=== PATIENT | male | born 1975 | race African-American/Black ===

== ENCOUNTER 2024-05-31 14:17 | Inpatient (IN) | payer OTHER ==
[~2024-05-31] VITALS: Ht 172.7 cm; Wt 93.4 kg
[2024-05-31 14:17] VITALS: BP_SYST 146; PULSE 83; RESP 19; TEMP 102.8; O2SAT 96
[2024-05-31 14:51] LABS: CLARITY/URINE CLEAR (CLEAR); COLOR,URINE YELLOW (YELLOW); GLUCOSE,URINE NEGATIVE (NEGATIVE); KETONES,URINE 2+ (NEGATIVE); LEUKOCYTE ESTERASE ,URINE NEGATIVE (NEGATIVE); NITRITE, URINE NEGATIVE (NEGATIVE); PROTEIN URINE TRACE (NEGATIVE)
[2024-05-31] MEDS: IBUPROFEN 800 MG TABLET PO ONE (14:55)
[2024-05-31 14:59] LABS: BILIRUBIN,URINE 1+ (NEGATIVE); BLOOD, URINE TRACE (NEGATIVE)
[2024-05-31 15:00] LABS: BACTERIA,URINE RARE /HPF (None Seen); RBC,URINE NONE SEEN /HPF (0-3); WBC,URINE 0-3 /HPF (0-3)
[2024-05-31 15:01] LABS: MUCUS,URINE None Seen /LPF (None Seen)
[2024-05-31 15:16] LABS: BASOPHILS # (AUTO) 0.1 K/uL (0.0-0.2); BASOPHILS % (AUTO) 0.9 % (0.0-2.0); EOSINOPHILS % (AUTO) 0.1 % (0.0-4.0); HEMATOCRIT 42.8 % (36-54); HEMOGLOBIN 14.4 g/dL (14.0-18.0); LYMPHOCYTES # (AUTO) 2.5 K/uL (1.0-5.5); LYMPHOCYTES % (AUTO) 14.3 % (20.5-51.5); MEAN CORPUSCULAR HEMOGLOBIN 28 pg (27-31); MEAN CORPUSCULAR HGB CONC 34 % (32-36); MEAN CORPUSCULAR VOLUME 83 fL (79.0-98.0); MONOCYTES # (AUTO) 1.3 K/uL (0.0-1.0); MONOCYTES % (AUTO) 7.5 % (1.7-9.3); NEUTROPHILS # (AUTO) 13.5 K/uL (1.8-7.7); NEUTROPHILS % (AUTO) 77.2 % (40.0-70.0); PLATELET COUNT (AUTO) 254 K/uL (130-430); RED BLOOD CELL COUNT(AUTO) 5.14 MIL/uL (4.2-6.2); RED CELL DISTRIBUTION WIDTH 13.7 % (9.0-15.0); WHITE BLOOD COUNT (AUTO) 17.5 K/uL (4.8-10.8)
[2024-05-31 15:29] LABS: INR 1.1 (0.80-1.20); PROTHROMBIN TIME 11.6 SECS (9.5-12.5)
[2024-05-31 15:35] LABS: ALBUMIN 4.3 g/dL (3.4-4.8); CREATININE 1.09 mg/dL (0.55-1.30); POTASSIUM 3.5 mmol/L (3.5-5.1); TOTAL BILIRUBIN 1.1 mg/dL (0.0-1.0); TOTAL PROTEIN, SERUM 7.6 g/dL (6.4-8.3)
[2024-05-31 16:05] LABS: BILIRUBIN,DIRECT 0.3 mg/dL (0.0-0.3)
[2024-05-31 16:29] LABS: INFLUENZA TYPE A Negative (NEGATIVE); INFLUENZA TYPE B NEGATIVE (NEGATIVE)
[2024-05-31] MEDS ORDERED: ACETAMINOPHEN 325 MG TABLET PO PRN ×2 (17:45→18:00)
[2024-05-31] MEDS ORDERED: ONDANSETRON HCL 4 MG/2 ML VIAL IVP PRN (17:45)
[2024-05-31] MEDS ORDERED: cefTRIAXone 2 GM VIAL IM SCH (17:45)
[2024-05-31] MEDS ORDERED: cefTRIAXone 1 GM IVPB PREMIX 50 ML IV SCH (17:45)
[2024-05-31 18:15] LABS: CSF APPEARANCE CLEAR (CLEAR); CSF COLOR COLORLESS (COLORLESS); CSF VOLUME 1.5 mL
[2024-05-31] MEDS: LIDOCAINE 1% 10 MG/ML, 20 ML MDV INJ ONE (18:28)
[2024-05-31 18:41] LABS: CSF PROTEIN 89 mg/dL (15-45)
[2024-05-31] MEDS: MORPHINE 4 MG INJ. 4 MG/ML VIAL IVP PRN (18:41)
[2024-05-31] MEDS: METOCLOPRAMIDE HCL 10 MG/2 ML VIAL IVP ONE (18:42)
[2024-05-31 18:43] LABS: CSF GLUCOSE 54 mg/dL (40-70)
[2024-05-31] MEDS: 0.45% NACL 1,000 ML IV SCH (18:43)
[2024-05-31 18:44] LABS: CSF LYMPHOCYTES 56 % (40-60); CSF NEUTROPHILS 44 % (0-6); CSF RED BLOOD CELL COUNT #1 176 /uL (0-0)
[2024-05-31] MEDS: DEXAMETHASONE SOD PHOSPHATE 10 MG/ML VIAL IVP SCH (18:46)
[2024-05-31] MEDS: DIPHENHYDRAMINE INJ 50 MG/ML VIAL IVP ONE (18:46)
[2024-05-31] MEDS ORDERED: cefTRIAXone 2 GM VIAL ONE (18:50)
[2024-05-31] MEDS: cefTRIAXone 2 GM IVPB PREMIX 50 ML IV ONE (18:51)
[2024-05-31] MEDS ORDERED: VANCOMYCIN HCL 1000 MG/VIAL IV ONE (19:43)
[2024-05-31] MEDS ORDERED: VANCOMYCIN HCL 500 MG/VIAL IV ONE (19:43)
[2024-05-31] MEDS: VANCOMYCIN HCL 1,500 MG in NS 500 ML IV ONE (20:09)
[2024-05-31 22:03] VITALS: BP_SYST 122; PULSE 70; RESP 18; TEMP 99.3; O2SAT 96
[2024-05-31] MEDS ORDERED: ACYCLOVIR SODIUM 50 MG/ML VIAL IV ONE (23:16)
[2024-05-31] MEDS: ACYCLOVIR IV SCH (23:25)
[2024-05-31] MEDS: NS IV SCH (23:25)
[2024-06-01 00:07] VITALS: BP_SYST 125; PULSE 79; RESP 19; TEMP 99.1
[2024-06-01] MEDS: VANCOMYCIN HCL 1,500 MG in NS 500 ML IV ONE (03:28)
[2024-06-01 07:24] LABS: ALBUMIN 3.8 g/dL (3.4-4.8); CALCIUM 8.6 mg/dL (8.4-11.0); CREATININE 0.95 mg/dL (0.55-1.30); PHOSPHORUS 3.9 mg/dL (2.7-4.5); POTASSIUM 4.1 mmol/L (3.5-5.1); TOTAL BILIRUBIN 0.7 mg/dL (0.0-1.0); TOTAL PROTEIN, SERUM 7.3 g/dL (6.4-8.3)
[2024-06-01 08:03] VITALS: BP_SYST 122; PULSE 67; RESP 12; TEMP 98.4; O2SAT 97
[2024-06-01 08:13] LABS: BASOPHILS % (AUTO) 0.2 % (0.0-2.0); HEMATOCRIT 43.5 % (36-54); HEMOGLOBIN 14.6 g/dL (14.0-18.0); MEAN CORPUSCULAR HEMOGLOBIN 28 pg (27-31); MEAN CORPUSCULAR HGB CONC 34 % (32-36); MEAN CORPUSCULAR VOLUME 83 fL (79.0-98.0); MONOCYTES # (AUTO) 0.4 K/uL (0.0-1.0); MONOCYTES % (AUTO) 3.1 % (1.7-9.3); NEUTROPHILS # (AUTO) 12.3 K/uL (1.8-7.7); NEUTROPHILS % (AUTO) 89.7 % (40.0-70.0); PLATELET COUNT (AUTO) 285 K/uL (130-430); RED BLOOD CELL COUNT(AUTO) 5.22 MIL/uL (4.2-6.2); RED CELL DISTRIBUTION WIDTH 13.5 % (9.0-15.0); WHITE BLOOD COUNT (AUTO) 13.8 K/uL (4.8-10.8)
[2024-06-01] MEDS ORDERED: cefTRIAXone 2 GM VIAL IV SCH (09:00)
[2024-06-01 09:22] VITALS: O2SAT 98
[2024-06-01 11:08] VITALS: BP_SYST 132; PULSE 73; RESP 12; TEMP 99.1; O2SAT 98
[2024-06-01] MEDS: PANTOPRAZOLE SODIUM 40 MG TAB PO ONE (11:42)
[2024-06-01] MEDS: VANCOMYCIN HCL 1,000 MG in NS 250 ML IV SCH (13:47)
[2024-06-01] MEDS: HYDROcodone/ACETAMIN 5-325 MG TAB (NORCO/ VICODIN) PO PRN (14:40)
[2024-06-01 15:18] VITALS: BP_SYST 147; PULSE 81; RESP 16; TEMP 98.8; O2SAT 97
[2024-06-01 20:03] VITALS: BP_SYST 126; PULSE 66; RESP 18; TEMP 98.2; O2SAT 100
[2024-06-01] MEDS: DIPHENHYDRAMINE HCL 12.5 MG/5 ML UDC PO PRN (21:43)
[2024-06-02] VITALS (7 sets, daily range): BP systolic 115–121; PULSE 65–70; RESP 15–18; TEMP 98.4–99.1; O2SAT 95–99
[2024-06-02] MEDS: PANTOPRAZOLE SODIUM 40 MG TAB PO SCH (08:33)
[2024-06-02 10:23] LABS: ALBUMIN 3.6 g/dL (3.4-4.8); CREATININE 1.09 mg/dL (0.55-1.30); POTASSIUM 4.3 mmol/L (3.5-5.1); TOTAL BILIRUBIN 0.4 mg/dL (0.0-1.0); TOTAL PROTEIN, SERUM 7.1 g/dL (6.4-8.3); VANCOMYCIN,TROUGH 13.3 ug/mL (10.0-20.0)
[2024-06-02 10:32] LABS: BASOPHILS % (AUTO) 0.2 % (0.0-2.0); HEMOGLOBIN 13.9 g/dL (14.0-18.0); LYMPHOCYTES # (AUTO) 0.9 K/uL (1.0-5.5); LYMPHOCYTES % (AUTO) 4.6 % (20.5-51.5); MEAN CORPUSCULAR HEMOGLOBIN 28 pg (27-31); MEAN CORPUSCULAR HGB CONC 33 % (32-36); MEAN CORPUSCULAR VOLUME 83 fL (79.0-98.0); MONOCYTES # (AUTO) 0.6 K/uL (0.0-1.0); NEUTROPHILS # (AUTO) 18.4 K/uL (1.8-7.7); NEUTROPHILS % (AUTO) 92.2 % (40.0-70.0); PLATELET COUNT (AUTO) 298 K/uL (130-430); RED BLOOD CELL COUNT(AUTO) 5.04 MIL/uL (4.2-6.2); RED CELL DISTRIBUTION WIDTH 13.8 % (9.0-15.0); WHITE BLOOD COUNT (AUTO) 19.9 K/uL (4.8-10.8)
[2024-06-03] VITALS (8 sets, daily range): BP systolic 111–130; PULSE 68–78; RESP 16–18; TEMP 97.1–98.6; O2SAT 97–98
[2024-06-03 03:07] LABS: HSV 2 IgG, TYPE SPECIFIC <0.91 index (0.00-0.90)
[2024-06-03 08:02] LABS: BASOPHILS % (AUTO) 0.2 % (0.0-2.0); HEMATOCRIT 40.2 % (36-54); HEMOGLOBIN 13.7 g/dL (14.0-18.0); LYMPHOCYTES % (AUTO) 17.7 % (20.5-51.5); MEAN CORPUSCULAR HEMOGLOBIN 28 pg (27-31); MEAN CORPUSCULAR HGB CONC 34 % (32-36); MEAN CORPUSCULAR VOLUME 83 fL (79.0-98.0); MONOCYTES # (AUTO) 1.3 K/uL (0.0-1.0); MONOCYTES % (AUTO) 7.8 % (1.7-9.3); NEUTROPHILS # (AUTO) 12.5 K/uL (1.8-7.7); NEUTROPHILS % (AUTO) 74.3 % (40.0-70.0); PLATELET COUNT (AUTO) 283 K/uL (130-430); RED BLOOD CELL COUNT(AUTO) 4.85 MIL/uL (4.2-6.2); RED CELL DISTRIBUTION WIDTH 13.8 % (9.0-15.0); WHITE BLOOD COUNT (AUTO) 16.9 K/uL (4.8-10.8)
[2024-06-03 08:24] LABS: ALBUMIN 3.4 g/dL (3.4-4.8); CALCIUM 8.8 mg/dL (8.4-11.0); CREATININE 1.04 mg/dL (0.55-1.30); POTASSIUM 4.1 mmol/L (3.5-5.1); TOTAL BILIRUBIN 0.5 mg/dL (0.0-1.0); TOTAL PROTEIN, SERUM 6.6 g/dL (6.4-8.3)
[2024-06-03 10:07] LABS: QUANTIFERON TB GOLD Negative (Negative)
[2024-06-03 10:36] LABS: CSF WHITE BLOOD CELL COUNT #1 34 /uL (0-5)
[2024-06-03] MEDS ORDERED: VANCOMYCIN HCL 1,000 MG in NS 250 ML IV SCH (22:00)
[2024-06-03] MEDS: VANCOMYCIN HCL 1,000 MG in NS 250 ML IV SCH (22:19)
[2024-06-04] VITALS (7 sets, daily range): BP systolic 106–122; PULSE 64–97; RESP 16–18; TEMP 97.2–98; O2SAT 96–100
[2024-06-04 08:23] LABS: BASOPHILS # (AUTO) 0.1 K/uL (0.0-0.2); BASOPHILS % (AUTO) 0.4 % (0.0-2.0); EOSINOPHILS # (AUTO) 0.1 K/uL (0.0-0.4); EOSINOPHILS % (AUTO) 0.6 % (0.0-4.0); HEMATOCRIT 42.4 % (36-54); HEMOGLOBIN 14.2 g/dL (14.0-18.0); LYMPHOCYTES # (AUTO) 4.4 K/uL (1.0-5.5); LYMPHOCYTES % (AUTO) 32.2 % (20.5-51.5); MEAN CORPUSCULAR HEMOGLOBIN 28 pg (27-31); MEAN CORPUSCULAR HGB CONC 34 % (32-36); MEAN CORPUSCULAR VOLUME 83 fL (79.0-98.0); MONOCYTES # (AUTO) 1.3 K/uL (0.0-1.0); MONOCYTES % (AUTO) 9.4 % (1.7-9.3); NEUTROPHILS # (AUTO) 7.9 K/uL (1.8-7.7); NEUTROPHILS % (AUTO) 57.4 % (40.0-70.0); PLATELET COUNT (AUTO) 281 K/uL (130-430); RED BLOOD CELL COUNT(AUTO) 5.09 MIL/uL (4.2-6.2); RED CELL DISTRIBUTION WIDTH 13.9 % (9.0-15.0); WHITE BLOOD COUNT (AUTO) 13.8 K/uL (4.8-10.8)
[2024-06-04 08:42] LABS: ALBUMIN 3.4 g/dL (3.4-4.8); CALCIUM 8.7 mg/dL (8.4-11.0); CREATININE 1.08 mg/dL (0.55-1.30); POTASSIUM 3.9 mmol/L (3.5-5.1); TOTAL BILIRUBIN 0.5 mg/dL (0.0-1.0); TOTAL PROTEIN, SERUM 6.5 g/dL (6.4-8.3)
[2024-06-04] MEDS: TEMAZEPAM 7.5 MG CAPSULE PO ONE (23:35)
[2024-06-05] VITALS: BP_SYST 112; PULSE 78; RESP 18; TEMP 97.7; O2SAT 95
[2024-06-05 07:53] LABS: BASOPHILS # (AUTO) 0.1 K/uL (0.0-0.2); BASOPHILS % (AUTO) 0.4 % (0.0-2.0); EOSINOPHILS # (AUTO) 0.2 K/uL (0.0-0.4); EOSINOPHILS % (AUTO) 1.1 % (0.0-4.0); HEMATOCRIT 43.6 % (36-54); HEMOGLOBIN 14.5 g/dL (14.0-18.0); LYMPHOCYTES # (AUTO) 3.2 K/uL (1.0-5.5); MEAN CORPUSCULAR HEMOGLOBIN 28 pg (27-31); MEAN CORPUSCULAR HGB CONC 33 % (32-36); MEAN CORPUSCULAR VOLUME 83 fL (79.0-98.0); MONOCYTES # (AUTO) 1.3 K/uL (0.0-1.0); MONOCYTES % (AUTO) 9.2 % (1.7-9.3); NEUTROPHILS # (AUTO) 9.9 K/uL (1.8-7.7); NEUTROPHILS % (AUTO) 67.3 % (40.0-70.0); PLATELET COUNT (AUTO) 301 K/uL (130-430); RED BLOOD CELL COUNT(AUTO) 5.23 MIL/uL (4.2-6.2); RED CELL DISTRIBUTION WIDTH 13.4 % (9.0-15.0); WHITE BLOOD COUNT (AUTO) 14.6 K/uL (4.8-10.8)
[2024-06-05 08:16] LABS: ALBUMIN 3.4 g/dL (3.4-4.8); CALCIUM 8.7 mg/dL (8.4-11.0); CREATININE 1.16 mg/dL (0.55-1.30); POTASSIUM 3.8 mmol/L (3.5-5.1); TOTAL BILIRUBIN 0.6 mg/dL (0.0-1.0); TOTAL PROTEIN, SERUM 6.5 g/dL (6.4-8.3)
[2024-06-05 08:34] VITALS: BP_SYST 131; PULSE 67; RESP 16; TEMP 97.2; O2SAT 97
[2024-06-05 10:00] VITALS: O2SAT 97
[2024-06-05 16:00] VITALS: BP_SYST 127; PULSE 70; RESP 17; TEMP 99.1; O2SAT 100
[2024-06-05 20:00] VITALS: BP_SYST 125; PULSE 71; RESP 18; TEMP 97.9; O2SAT 100
[2024-06-05] MEDS: MORPHINE 4 MG INJ. 4 MG/ML VIAL IVP ONE ×2 (22:14→22:55)
[2024-06-06] VITALS: BP_SYST 111; PULSE 61; RESP 18; TEMP 98.8; O2SAT 98
[2024-06-06 07:08] LABS: BASOPHILS # (AUTO) 0.1 K/uL (0.0-0.2); BASOPHILS % (AUTO) 0.4 % (0.0-2.0); EOSINOPHILS # (AUTO) 0.4 K/uL (0.0-0.4); EOSINOPHILS % (AUTO) 2.9 % (0.0-4.0); HEMOGLOBIN 13.9 g/dL (14.0-18.0); LYMPHOCYTES # (AUTO) 2.5 K/uL (1.0-5.5); LYMPHOCYTES % (AUTO) 19.8 % (20.5-51.5); MEAN CORPUSCULAR HEMOGLOBIN 28 pg (27-31); MEAN CORPUSCULAR HGB CONC 33 % (32-36); MEAN CORPUSCULAR VOLUME 83 fL (79.0-98.0); MONOCYTES # (AUTO) 1.5 K/uL (0.0-1.0); MONOCYTES % (AUTO) 11.7 % (1.7-9.3); NEUTROPHILS # (AUTO) 8.2 K/uL (1.8-7.7); NEUTROPHILS % (AUTO) 65.2 % (40.0-70.0); PLATELET COUNT (AUTO) 283 K/uL (130-430); RED BLOOD CELL COUNT(AUTO) 5.05 MIL/uL (4.2-6.2); RED CELL DISTRIBUTION WIDTH 13.6 % (9.0-15.0); WHITE BLOOD COUNT (AUTO) 12.5 K/uL (4.8-10.8)
[2024-06-06 07:52] LABS: ALBUMIN 3.3 g/dL (3.4-4.8); CALCIUM 8.7 mg/dL (8.4-11.0); CREATININE 1.1 mg/dL (0.55-1.30); POTASSIUM 4.1 mmol/L (3.5-5.1); TOTAL BILIRUBIN 0.5 mg/dL (0.0-1.0); TOTAL PROTEIN, SERUM 6.3 g/dL (6.4-8.3)
[2024-06-06 09:30] VITALS: O2SAT 100
[2024-06-06] MEDS: CYCLOBENZAPRINE HCL 10 MG TABLET (FLEXERIL) PO SCH (09:54)
[2024-06-06] MEDS ORDERED: ACYC-133 PO (11:33)
[2024-06-06 12:43] VITALS: BP_SYST 106; PULSE 74; RESP 16; TEMP 98.2; O2SAT 98
[2024-06-06 17:03] VITALS: BP_SYST 131; PULSE 79; RESP 16; TEMP 98.6; O2SAT 98
[2024-06-06] MEDS ORDERED: CYCL10TA24 PO (18:00)
[2024-06-06] MEDS ORDERED: VANCOMYCIN HCL 1.25 GM/NS 250 ML IV SCH (18:00)
[2024-06-06 19:25] VITALS: BP_SYST 133; PULSE 76; RESP 16; TEMP 98.2; O2SAT 98
== END 2024-06-06 20:20 | disposition home health service (06) | DRG 872 ==
LOC: SED 14:17 → SMU 17:33
PROVIDERS: ADMIT Family Medicine; ATTEND Family Medicine
PROC: 009U3ZX Drainage of Spinal Canal, Percutaneous Approach, Diagnostic (ICD-10-PCS; principal; 2024-05-31)
PROC: 4A00X4Z Measurement of Central Nervous Electrical Activity, External Approach (ICD-10-PCS; 2024-05-31)
DX: A41.9 Sepsis, unspecified organism (principal); A87.9 Viral meningitis, unspecified; E66.3 Overweight; I10 Essential (primary) hypertension; E11.9 Type 2 diabetes mellitus without complications; Z68.31 Body mass index [BMI] 31.0-31.9, adult
CPT/HCPCS: 36415; 70450-TC; 71045; 80048; 80053; 80076; 80202; 81000; 81001; 81015; 82947; 83605; 83735; 84100; 84157; 85025; 85048; 85610; 85651; 85730; 86480; 86592; 86695; 86696; 87040; 87070; 87086; 87205; 87899; 89051; 95816; 96365; 99285; J0133; J0696; J1100; J1200; J2001; J2270; J2765; J3370; J7040; J7050; J7060